=== PATIENT | male | born 1995 | race Caucasian/White ===

== ENCOUNTER 2017-05-03 11:29 | Emergency (ER) | payer OTHER ==
[2017-05-03 11:35] VITALS: BP 108/64; PULSE 88; TEMP 98.7; BMI 21.7
--- NOTE | 2017-05-03 12:33 | PDOC ---
History of Present Illness - General Chief Complaint: Nausea/Vomiting Stated Complaint: 1/2 VOMITING Time Seen by Provider: 05/03/17 12:31 History Source: Patient Exam Limitations: No Limitations - History of Present Illness Initial Comments: CHIEF COMPLAINT: 21 y/o afebrile male with no significant PMH c/o vomiting and abdominal cramping since last night. HISTORY OF PRESENT ILLNESS: The patient's sister is also here with the same symptoms that started last night. He denies fever, cough, sore throat, CP, SOB , back pain, hematuria, dysuria, diarrhea, constipation. He states he can't hold down solids and most liquids. He describes his abd pain as intermittent and cramping. Vital signs on arrival are within normal limits. REVIEW OF SYSTEMS: GENERAL/CONSTITUTIONAL: fever/chills. No weakness. No weight change. HEAD, EYES, EARS, NOSE AND THROAT: No change in vision. No ear pain or discharge. No sore throat. CARDIOVASCULAR: No chest pain or shortness of breath. RESPIRATORY: No cough, wheezing, or hemoptysis. GASTROINTESTINAL: +abd pain, nausea, vomiting. No diarrhea or constipation. GENITOURINARY: No dysuria, frequency, or change in urination. MUSCULOSKELETAL: No joint or muscle swelling or pain. No neck or back pain. SKIN: No rash or easy bruising. NEUROLOGIC: No headache, vertigo, loss of consciousness, or loss of sensation. PHYSICAL EXAM: GENERAL: The patient is awake, alert, and fully oriented, in no acute distress. She is ambulatory and talkative. HEAD: Normal with no signs of trauma. ENT: Pupils equal, round and reactive to light, extraocular movements intact, sclera anicteric, conjunctiva clear. Neck supple. Mucous membranes moist. LUNGS: Clear to auscultation bilaterally. Normal excursion. No respiratory distress or use of accessory muscles. CV: RRR, S1/S2, no MRG. Cap refill < 2 sec. ABDOMEN: Soft, non-distended, minimal TTP of LLQ. No rebound, guarding or rigidity. The patient can jump up and down without abdominal pain. EXTREMITIES: Normal range of motion, no edema. NEUROLOGICAL: Normal speech, normal gait. CN II-XII grossly intact. PSYCH: Normal mood, normal affect. SKIN: Warm, dry, normal turgor, no rashes or lesions noted. Past History - Past Medical History Allergies/Adverse Reactions: Allergies Allergy/AdvReac Type Severity Reaction Status Date / Time No Known Allergies Allergy Verified 05/03/17 11:32 Home Medications: Ambulatory Orders NK [No Known Home Medication] 10/01/15 Other medical history: none - Psycho/Social/Smoking Cessation Hx Anxiety: No Suicidal Ideation: No Smoking History: Never smoked Have you smoked in the past 12 months: No Information on smoking cessation initiated: No Drug/Substance Use Hx: No Substance Use Type: None *Physical Exam - Vital Signs Last Vital Signs Temp Pulse Resp BP Pulse Ox 98.7 F 88 18 108/64 100 05/03/17 11:33 05/03/17 11:33 05/03/17 11:33 05/03/17 11:33 05/03/17 11:33 Medical Decision Making - Medical Decision Making A/P: 21 y/o afebrile male with a stomach virus. Plan is as follows: 1. debbie leone The patient was able to pass a PO challenge. Instructed the patient to go home and rest, start taking small sips of room temperature liquids and slowly reintroduce bland foods this evening if tolerated. Instructed him to return to the ER with any worsening or concerning symptoms. The patient verbalizes understanding of all instructions, has no further questions and is awaiting discharge. *DC/Admit/Observation/Transfer Diagnosis at time of Disposition: Gastroenteritis - Discharge Dispostion Disposition: HOME Condition at time of disposition: Improved - Patient Instructions Printed Discharge Instructions: Gastroenteritis Diet, DI for Viral Gastroenteritis -- Adult Additional Instructions: Discharge Instructions: -Go home and get plenty of rest -Take small sips of room temperature liquids -In about 8 hours start slowly eating bland foods such as chicken soup, crackers , toast -REturn to the ER with any worsening or concerning symptoms. Print Language: [place]OH[place] - Post Discharge Activity Work/School Note: Parent(s) Back to Work Note
[2017-05-03] MEDS ORDERED: ONDANSETRON *ODT* 4 MG TABLET SL ONE (13:25)
[2017-05-03] MEDS ORDERED: ONDANSETRON *ODT* 4 MG TABLET ONE (13:32)
== END 2017-05-03 14:01 | disposition home or self-care (01) ==
LOC: JERFT 11:29
DX: K52.9 Noninfective gastroenteritis and colitis, unspecified (principal)
CPT/HCPCS: 99281-25